=== PATIENT | female | born 1980 | race Caucasian/White ===

== ENCOUNTER 2016-08-13 09:06 | Emergency (ER) | payer SELFPAY ==
--- NOTE | 2016-08-13 09:51 | ED.REPORT ---
HPI-General Illness Date of Service Aug 13, 2016 ED Provider: Florence Lerner MD A 36 year old female presents to the ED from [facility], [facility] staff complaining that she is not eating or drinking. She was sent to ED for rehydration. She is accompanied by her [facility]. Patient is non- interactive which makes history in-take difficult. Nursing Notes Stated Complaint: DEHYRATION Nursing Notes Reviewed: Yes General Time Seen by MD: 09:42 Chief Complaint Other (dehydration.) Hx Obtained From: Physical Science Professor, EMS Unable to Obtain Hx: Uncooperative (patient is non-interactive. ) Onset Occurred: Onset unknown Symptom Duration: Duration unknown Recent Healthcare: No recent doctor visit Similar Sx Previous: No Past Medical History Past Medical History Patient is not interactive, hasn't been eating or drinking while at [facility]. Involuntarily detained currently. Seen on , was tachyacrdic, complaints of not eating or drikning. Past Surgical History None reported. Social History Patient is from [place], but per Physical Science Professor, does speak Faroese. Ambulatory Status Independent Review of Systems Unable to Obtain ROS Uncooperative (Patient is non-interactive) Physical Exam Vital Signs Vital Signs Date Time Temp Pulse Resp B/P Pulse Ox O2 Delivery O2 Flow Rate FiO2 08/13/16 13:54 82 12 124/68 08/13/16 10:46 37.1 79 20 128/76 100 Room Air 08/13/16 10:01 37.1 79 20 128/76 100 Room Air Initial VS: Reviewed Head / Eyes: Atraumatic, Normocephalic, PERRL Respiratory: Breath sounds normal, Clear to auscultation, No respiratory distress Cardiovascular: Regular rate & rhythm, Heart sounds normal, Intact distal pulses Abdomen / GI: Soft, Non-tender Skin: Warm, Dry (no indication of cutting or self induced injury) Patient is not interactive and quite thin. She won't make eye contact and keeps her eyes physically covered. No signs of self harm or cutting. ENT: Atraumatic Mouth: Positive: Mucous membranes dry Upper Extremities Upper Extremity / MS: No edema Wrist / Hand: No edema Lower Extremity / Pelvis / MS: No edema Ankle / Foot: No edema Slight sunburn on hands and face. Interpretation & Diagnostics Lab Results Interpretation Result Diagram: 08/13/16 1035 08/13/16 1035 Test 08/13/16 10:35 08/13/16 13:01 White Blood Count 3.4th/mm3 (3.8-10.1) Red Blood Count 5.11mil/mm3 (3.90-5.20) Hemoglobin 16.4g/dL (12.0-15.6) Hematocrit 45.0% (35.0-46.0) Mean Corpuscular Volume 88.1fL (81-100) Mean Corpuscular Hemoglobin 32.1pg (27.0-35.0) Mean Corpuscular Hemoglobin Concent 36.4% (32.0-37.0) Red Cell Distribution Width 11.6% (12.3-15.4) Platelet Count 246bil/L (150-400) Neutrophils (%) (Auto) 39.8% (40-74) Lymphocytes (%) (Auto) 47.1% (14-46) Monocytes (%) (Auto) 12.2% (4-12) Eosinophils (%) (Auto) 0.6% (0-5) Basophils (%) (Auto) 0.3% (0-3) Sodium Level 135mEq/L (134-144) Potassium Level 3.8mEq/L (3.5-5.2) Chloride Level 95mEq/L (97-108) Carbon Dioxide Level 18mmol/L (18-29) Blood Urea Nitrogen 13mg/dL (6-20) Creatinine 0.60mg/dL (0.57-1.00) Estimat Glomerular Filtration Rate 162mL/min (>59) Glucose Level 56mg/dL (60-99) Calcium Level 9.3mg/dL (8.5-10.1) Phosphorus Level 4.1mg/dL (2.5-4.9) Magnesium Level 2.1mg/dL (1.6-2.6) Total Bilirubin 1.4mg/dL (0.0-1.2) Aspartate Amino Transf (AST/SGOT) 22U/L (0-50) Alanine Aminotransferase (ALT/SGPT) 18U/L (0-32) Alkaline Phosphatase 52U/L (25-150) Total Protein 8.0g/dL (6.4-8.4) Albumin 4.8g/dL (3.4-5.0) Hold Urine Received (Received) Re-Eval/Medical Decision Source of Hx: Old records (Patient is not interactive. ) Time of Eval: 09:42 Re-Evaluation/Progress Note: Rechecked patient. Counseled Regarding: Diagnosis, When/why to return to ED Discharge & Departure Primary Impression: Dehydration Ruled Out: Renal failure, Electrolyte abnormality Disposition: Home Discharge Condition All VS Reviewed: Yes Condition: Improved Additional Instructions: You are slightly dehydrated because she are not eating and drinking enough. Can return to [facility]. I will include a copy of my note as well as the lab work done. If additional medical evaluation or intervention is requested, please feel free to return to the emergency department. Because you are currently detained, I will arrange for BLS transport back to [facility] for you. Scribe Attestation Portions of this note were transcribed by Kunal Delong. I, Dr. Lerner personally performed the history, physical exam and medical decision-making; I reviewed and confirmed the accuracy of the information in the transcribed note. Signed by: Phobee Guerrier, 08/13/2016 1527. copies to: Florence Joy MD Aug 13, 2016 09:51 Kunal Delong Aug 13, 2016 09:53
[2016-08-13 10:01] VITALS: BP 128/76; PULSE 79; RESP 20; O2SAT 100
[2016-08-13] MEDS ORDERED: 0.9% Sodium Chloride 1,000 ML IV ONE (10:20)
[2016-08-13 10:46] VITALS: BP 128/76; PULSE 79; RESP 20; O2SAT 100
[2016-08-13 10:52] LABS: BASOPHILS % (AUTO) 0.3 % (0-3); EOSINOPHILS % (AUTO) 0.6 % (0-5); MONOCYTES % (AUTO) 12.2 % (4-12); Mean Corpuscular Hemoglobin 32.1 pg (27.0-35.0); Mean Corpuscular Volume 88.1 fL (81-100); NEUTROPHILS % (AUTO) 39.8 % (40-74); Platelet Count 246 bil/L (150-400)
[2016-08-13 11:13] LABS: Magnesium 2.1 mg/dL (1.6-2.6); Phosphorus 4.1 mg/dL (2.5-4.9)
[2016-08-13 13:54] VITALS: BP 124/68; PULSE 82; RESP 12
== END 2016-08-13 13:56 | disposition home or self-care (01) ==
LOC: SED 09:06 → EDBD 09:06 → SED 13:56
DX: E86.0 Dehydration (principal)
CPT/HCPCS: 36415; 80053; 81025; 83735; 84100; 85025; 96360; 99284; J7030